=== PATIENT | male | born 1960 | race Caucasian/White ===

== ENCOUNTER 2021-05-13 13:07 | Day surgery (SDC) | payer OTHER ==
[~2021-05-13] VITALS: Ht 182.9 cm; Wt 81.7 kg
--- NOTE | 2021-05-13 13:40 | NUR ---
05/13/21 1340 Socorro Abel ONE ATTEMPT IN RH BY MA VALVE SECOND SUCCESSFUL IN RFA PT TOW
== END 2021-05-13 15:07 | disposition home or self-care (01) ==
LOC: ORSCSDS 13:07
PROVIDERS: Surgery
PROC: 0DBK8ZX Excision of Ascending Colon, Via Natural or Artificial Opening Endoscopic, Diagnostic (ICD-10-PCS; principal; 2021-05-13 14:15)
PROC: 0DBP8ZX Excision of Rectum, Via Natural or Artificial Opening Endoscopic, Diagnostic (ICD-10-PCS; principal; 2021-05-13 14:15)
PROC: 0DBH8ZX Excision of Cecum, Via Natural or Artificial Opening Endoscopic, Diagnostic (ICD-10-PCS; principal; 2021-05-13 14:15)
DX: K62.5 Hemorrhage of anus and rectum (principal); R19.4 Change in bowel habit; D01.2 Carcinoma in situ of rectum; D12.0 Benign neoplasm of cecum; D12.2 Benign neoplasm of ascending colon; I10 Essential (primary) hypertension; F17.210 Nicotine dependence, cigarettes, uncomplicated; Z79.899 Other long term (current) drug therapy
CPT/HCPCS: 88305; J2704; J7120

== ENCOUNTER 2021-06-23 06:37 | Day surgery (SDC) | payer OTHER ==
[~2021-06-23] VITALS: Ht 182.9 cm; Wt 81.4 kg
[~2021-06-23 06:37] MED LIST: DOXA1 PO; LEVOTHYROXINE13 MCG PO; Lisinopril2.5 MG PO; PROBIOTIC1 EA13 PO
--- NOTE | 2021-06-23 07:15 | NUR ---
[facility] in [facility] warming gown applied. History, Chart, Medications and Allergies reviewed before start of procedure.Lungs clear T/O to Auscultation. Patient confirms NPO status and agrees with scheduled surgery. Pre-Op teaching done. Pt verbalizes understanding. Patient States Post-Procedure ride home has been arranged. Patient reports completing Chlorhexadine shower X2 prior to admission to hospital.
--- NOTE | 2021-06-23 10:21 | NUR ---
Patient up to Ambulate independently. Gait steady. Discharge instructions reviewed with patient. Patient verbalizes understanding. Copy given to patient to take home. Discharged via wheelchair to private car for ride home WITH
== END 2021-06-23 10:23 | disposition home or self-care (01) ==
LOC: ORSCMMR 06:37 → ORD 07:30 → ORSCMMR 08:15
PROVIDERS: Surgery
PROC: 0JH60WZ Insertion of Totally Implantable Vascular Access Device into Chest Subcutaneous Tissue and Fascia, Open Approach (ICD-10-PCS; principal; 2021-06-23 08:15)
DX: C18.9 Malignant neoplasm of colon, unspecified (principal); I10 Essential (primary) hypertension; F17.210 Nicotine dependence, cigarettes, uncomplicated; Z79.899 Other long term (current) drug therapy
CPT/HCPCS: 77001; 93005; 93010; C1788; J0690; J1100; J1642; J2250; J2405; J2704; J3010; J7120

== ENCOUNTER 2024-07-09 07:04 | Day surgery (SDC) | payer MEDICARE ==
[~2024-07-09] VITALS: Ht 182.9 cm; Wt 86.0 kg
[~2024-07-09 07:04] MED LIST changes: +ASPI81CH PO; +ATOR80 PO; +DOXA4 PO; +MULVITB PO
[2024-07-09] MEDS ORDERED: Heparin Sodium 1000 Units/ML 10ML MDV ONE ×2 (07:11→07:56)
[2024-07-09] MEDS ORDERED: NS 500 ML IV ONE (07:11)
[2024-07-09] MEDS ORDERED: NS 1,000 ML IV ONE ×2 (07:11→07:56)
[2024-07-09] MEDS ORDERED: Nitroglycerin 2 MG/20 ML BTL ONE (07:12)
[2024-07-09 07:25] VITALS: BP 162/83
[2024-07-09] MEDS ORDERED: Midazolam HCl 1MG / ML 2ML Vial ONE ×2 (08:27→09:00)
[2024-07-09] MEDS ORDERED: FentaNYL Citrate 50 MCG/ML 2 ML Injection ONE (08:27)
[2024-07-09 10:31] VITALS: BP 122/75
--- NOTE | 2024-07-09 10:35 | NUR ---
PT RETURNED TO RECOVERY ROOM IN BED. LEFT FEMORAL GROIN SITE SOFT NON-TENDER WITH NO HEMATOMA, NO PULSATILE BLEEDING AND INTACT DRESSING WITH SLIGHT TRACK OOZING. LEFT PT DOPPLER. RIGHT PT DOPPLER. CALL LIGHT IN REACH; PT WATCHING TV. BED FLAT WITH SLIGHT REVERSE [place].
[2024-07-09 10:45] VITALS: BP 117/73
[2024-07-09 11:00] VITALS: BP 108/67
[2024-07-09 11:15] VITALS: BP 121/72
[2024-07-09 11:30] VITALS: BP 108/74
--- NOTE | 2024-07-09 11:58 | NUR ---
NO CHANGES TO L FEM GROIN SITE. R AND L PT PULSES STILL DOPPLER. HOB UP TO 45 DEGREES. PT DRINKING WATER.
--- NOTE | 2024-07-09 12:26 | NUR ---
NO CHANGES TO L FEM GROIN SITE. BILAT PT PULSES STILL DOPPLER. DISCHARGE INSTRUCTIONS REVIEWED ALL QUESTIONS ANSWERED.
--- NOTE | 2024-07-09 13:05 | NUR ---
NO CHANGES TO L FEM GROIN SITE. 20 G IV DISCONTINUED FROM LEFT AC WITH INTACT CANNULA. PT ESCORTED OUT VIA WHEELCHAIR ESCORT.
== END 2024-07-09 13:05 | disposition home or self-care (01) ==
LOC: MHTC 07:04
DX: I70.223 Atherosclerosis of native arteries of extremities with rest pain, bilateral legs (principal); I10 Essential (primary) hypertension; Z79.899 Other long term (current) drug therapy; Z72.0 Tobacco use
CPT/HCPCS: 36200; 36246; 36248; 37220; 37226; 37228; 37232; 75625; 75716; 75774; 76937; 99152; 99153; C1725; C1760; C1769; C1887; C1894; C2623; J1644; J2250; J3010; J7030; J7050; Q9967

== ENCOUNTER 2025-03-17 18:13 | Emergency (ER) | payer MEDICARE ==
[~2025-03-17] VITALS: Ht 182.9 cm; Wt 86.2 kg
[2025-03-17 19:07] LABS: BASOPHILS ABSOLUTE AUTO 0.06 K/mm3 (0.00-0.23); BASOPHILS PERCENT AUTO 1 % (0-2); EOSINOPHILS ABSOLUTE AUTO 0.14 K/mm3 (0.00-0.68); EOSINOPHILS PERCENT AUTO 2 % (0-6); Hematocrit 34.6 % (37.0-53.0); Hemoglobin 12.2 g/dL (13.5-17.5); IMMATURE GRAN ABSOLUTE AUTO 0.04 K/mm3 (0.00-0.10); IMMATURE GRAN PERCENT AUTO 0 % (0-1); LYMPHOCYTES ABSOLUTE AUTO 1.63 K/mm3 (0.84-5.20); LYMPHOCYTES PERCENT AUTO 18 % (21-46); MONOCYTES ABSOLUTE AUTO 0.89 K/mm3 (0.16-1.47); MONOCYTES PERCENT AUTO 10 % (4-13); Mean Corpuscular HGB 33.8 pg (26.0-34.0); Mean Corpuscular HGB Conc 35.3 g/dL (31.5-36.5); Mean Corpuscular Volume 96 fL (80-100); Mean Platelet Volume 8.8 fL (9.1-12.4); NEUTROPHILS ABSOLUTE AUTO 6.53 K/mm3 (1.96-9.15); NEUTROPHILS PERCENT AUTO 70 % (41-73); Platelet Count 279 K/mm3 (150-400); RDW Standard Deviation 52.6 fL (35.1-46.3); Red Blood Cell Count 3.61 M/mm3 (4.30-5.90); White Blood Cell Count 9.29 K/mm3 (4.00-11.30)
[2025-03-17 19:37] LABS: Albumin, Blood 3.3 g/dL (3.4-5.0); Bilirubin, Total 0.3 mg/dL (0.1-1.0); Bun/Creatinine Ratio 12.5 (12.0-20.0); Calcium, Blood 8.6 mg/dL (8.5-10.1); Creatinine, Blood 0.88 mg/dL (0.60-1.20); Globulin, Blood 3.3 g/dL (2.2-4.0); Potassium, Blood 3.3 mmol/L (3.5-5.5); Total Protein, Blood 6.6 g/dL (6.4-8.2)
[2025-03-17 20:45] VITALS: BP 126/72
== END 2025-03-17 20:47 | disposition home or self-care (01) ==
LOC: ER 18:13
PROVIDERS: Emergency Medicine
DX: R55 Syncope and collapse (principal); I10 Essential (primary) hypertension; E03.9 Hypothyroidism, unspecified; F17.200 Nicotine dependence, unspecified, uncomplicated; Z79.82 Long term (current) use of aspirin; Z79.890 Hormone replacement therapy; Z79.899 Other long term (current) drug therapy
CPT/HCPCS: 80053; 84484; 85025; 93005; 93010; 99284-25

== ENCOUNTER 2025-08-12 13:26 | Day surgery (SDC) | payer MEDICARE ==
[~2025-08-12] VITALS: Ht 180.3 cm; Wt 85.8 kg
[2025-08-12] VITALS (16 sets, daily range): BP systolic 100–150; BP diastolic 67–93
--- NOTE | 2025-08-12 14:11 | NUR ---
History, Chart, Medications and Allergies reviewed before start of procedure.Patient states colon prep results clear. Pre-Op teaching done. Pt verbalizes understanding. Patient States Post-Procedure ride home has been arranged. Patient confirms NPO status and agrees with scheduled surgery.
--- NOTE | 2025-08-12 14:41 | NUR ---
08/12/25 1441 Yamilet Wong CONFIRMED AND REVIEWED H&P, MEDCICATIONS, ALLERGIES, MEDICAL HISTORY, RESPIRATORY HISTORY, VITAL SIGNS, 3-LEAD EKG, CONSENTS, AND PHYSICIAN ORDERS. PATIENT CONFIRMS NPO STATUS AND AGREES WITH SCHEDULED PROCEDURE. MONITOR INTACT WITH CONTINUOUS PULSE OXIMETRY, CAPNOGRAPHY, 3-LEAD EKG, INTERMITTENT BP. SUPPLEMENTAL O2 TO BE TITRATED THROUGHOUT PROCEDURE TO MAINTAIN O2 SATURATION ABOVE 90%. PATIENT DETERMINED TO BE ASA APPROPRIATE FOR PROPOFOL SEDATION PRIOR TO START OF PROCEDURE BY DR. JEONG.
--- NOTE | 2025-08-12 15:42 | NUR ---
Discharge instructions reviewed with patient. Patient verbalizes understanding. Copy given to patient to take home. Patient States Post-Procedure ride home has been arranged. Discharged via wheelchair to private car for ride home.
== END 2025-08-12 15:35 | disposition home or self-care (01) ==
LOC: ORSCMMR 13:26 → ORD 14:30 → ORSCMMR 15:35
PROVIDERS: Surgery
PROC: 0DBM8ZX Excision of Descending Colon, Via Natural or Artificial Opening Endoscopic, Diagnostic (ICD-10-PCS; principal; 2025-08-12 14:30)
PROC: 0DBK8ZX Excision of Ascending Colon, Via Natural or Artificial Opening Endoscopic, Diagnostic (ICD-10-PCS; principal; 2025-08-12 14:30)
PROC: 0DBP8ZX Excision of Rectum, Via Natural or Artificial Opening Endoscopic, Diagnostic (ICD-10-PCS; principal; 2025-08-12 14:30)
DX: Z12.11 Encounter for screening for malignant neoplasm of colon (principal); D12.2 Benign neoplasm of ascending colon; D12.4 Benign neoplasm of descending colon; Z85.048 Personal history of other malignant neoplasm of rectum, rectosigmoid junction, and anus; N40.0 Benign prostatic hyperplasia without lower urinary tract symptoms; I10 Essential (primary) hypertension; E03.9 Hypothyroidism, unspecified; I73.9 Peripheral vascular disease, unspecified; Z85.118 Personal history of other malignant neoplasm of bronchus and lung; Z85.79 Personal history of other malignant neoplasms of lymphoid, hematopoietic and related tissues; I25.10 Atherosclerotic heart disease of native coronary artery without angina pectoris; Z79.82 Long term (current) use of aspirin; Z79.899 Other long term (current) drug therapy; F17.210 Nicotine dependence, cigarettes, uncomplicated
CPT/HCPCS: 88305; J2704; J7120